=== PATIENT | male | born 1950 | race Caucasian/White ===

== ENCOUNTER 2023-09-16 06:20 | Observation (INO) ==
--- NOTE | 2023-08-18 11:48 | PAT Medication Instructions ---
Medication Instructions Date of Service August 18, 2023 Home Medications Medication Instructions Recorded celecoxib 200 mg capsule (Celebrex) 200 mg PO BID PRN pain #30 caps 05/17/23 alfuzosin 10 mg tablet,extended release 24 hr 10 mg PO QPM amlodipine 2.5 mg tablet 2.5 mg PO QAM aspirin 81 mg tablet,delayed release (Adult Aspirin Regimen) 81 mg PO QAM cetirizine 10 mg tablet 10 mg PO QAM Allergy Symptoms cholecalciferol (vitamin D3) 125 mcg (5,000 unit) capsule 125 mcg PO QAM hydralazine 50 mg tablet 50 mg PO QPM pravastatin 40 mg tablet 40 mg PO QPM sertraline 100 mg tablet 100 mg PO QPM celecoxib 200 mg capsule (Celebrex) 200 mg PO BID PRN pain valsartan 160 mg tablet 160 mg PO QAM ASK your surgeon for instructions celecoxib 200 mg capsule (Celebrex) 200 mg PO BID PRN pain ASK your prescriber and surgeon aspirin 81 mg tablet,delayed release (Adult Aspirin Regimen) 81 mg PO QAM DO NOT take the morning of surgery cetirizine 10 mg tablet 10 mg PO QAM Allergy Symptoms cholecalciferol (vitamin D3) 125 mcg (5,000 unit) capsule 125 mcg PO QAM valsartan 160 mg tablet 160 mg PO QAM Take morning of surgery With a small sip of water, OTHERWISE NOTHING TO EAT OR DRINK AFTER MIDNIGHT: amlodipine 2.5 mg tablet 2.5 mg PO QAM Take evening before surgery alfuzosin 10 mg tablet,extended release 24 hr 10 mg PO QPM hydralazine 50 mg tablet 50 mg PO QPM pravastatin 40 mg tablet 40 mg PO QPM sertraline 100 mg tablet 100 mg PO QPM Other Notes If you have any questions please call us at [phone] or [phone] or [phone] or [phone]
--- NOTE | 2023-08-23 11:16 | Anesthesiology Consultation ---
Date of Service August 23, 2023 Assessment & Plan (1) Encounter for pre-operative examination: Plan - awaiting cardiology clearance, optimization form to be faxed. - Case discussed in detail with Dr. Minor especially cardiac history and he advised cardiology clearance is needed. Surgeon's office and patient made aware. - cardiology office visit 03/17/23: "...follow up of CAD...feeling well...SOB when walking up elevation...hx of CAD with unclear stents in the past. Last stress testing has been negative...can consider ISM to see if this helps-if not, then can d/c. Consider further stress testing if symptoms are not controlle d...04/15/23: patient prescribed ISM at last visit given ongoing c/o of SOB with exertion. Did not help and he had DANGELO so stopped after two days. Continues to have some SOB but none at rest...f/u as scheduled..." Chart Review Chart Review: Pending: Refer to Additional Notes / Consult section and Patient seen in Pre Admission Testing Teaching & Discussion Pre-Anesthesia Teaching/Discussion Notes: Instructed NPO after midnight before surgery, except medications with 15 cc of water. Medication instructions provided according to the PAT guidelines. History Surgery Operation Date: 09/14/23 07:15 Proposed Procedures p L3-L4, L4-L5 Lumbar Decompression - Juan Cline MD Height/Weight Height: 6 ft 1 in Weight: 115.6 kg Allergies Allergy/AdvReac Type Severity Reaction Status Date / Time hydrochlorothiazide Allergy Intermediate rash Verified 08/10/23 10:02 naproxen [From Aleve] Allergy Intermediate rash Verified 08/10/23 10:02 Medications Home Medications Medication Instructions Recorded Confirmed Last Taken alfuzosin 10 mg tablet,extended 10 mg PO QPM 03/16/23 08/10/23 Unknown release 24 hr amlodipine 2.5 mg tablet 2.5 mg PO QAM 03/16/23 08/10/23 Unknown aspirin 81 mg tablet,delayed 81 mg PO QAM 03/16/23 08/10/23 Unknown release (Adult Aspirin Regimen) cetirizine 10 mg tablet 10 mg PO QAM Allergy Symptoms 03/16/23 08/10/23 Unknown cholecalciferol (vitamin D3) 125 125 mcg PO QAM 03/16/23 08/10/23 Unknown mcg (5,000 unit) capsule hydralazine 50 mg tablet 50 mg PO QPM 03/16/23 08/10/23 Unknown pravastatin 40 mg tablet 40 mg PO QPM 03/16/23 08/10/23 Unknown sertraline 100 mg tablet 100 mg PO QPM 03/16/23 08/10/23 Unknown celecoxib 200 mg capsule (Celebrex) 200 mg PO BID PRN pain #30 caps 05/17/23 08/10/23 Unknown valsartan 160 mg tablet 160 mg PO QAM 08/10/23 08/10/23 Unknown Past Medical History Medical History (Updated 08/23/23 @ 11:26 by Denae Marcial PA-C) Anxiety Basal cell carcinoma removed in office BPH (benign prostatic hyperplasia) Bradycardia runs in 40s CAD (coronary artery disease) 1 stent in 1999 Dyslipidemia GERD (gastroesophageal reflux disease) occasional Hearing deficit Hypertension 160s/70s per pt Low back pain Nausea and vomiting after administration of anesthetic agent denies needing scop patch Seasonal allergies Sleep apnea has not used CPAP since recall Patient denies h/o stroke, seizures, heart attack, heart failure, DM, blood clots/DVTs or blood transfusions. Exercise / Class Metabolic Activity II 4-5 Yardwork/Stairs/Walk up hill (denies chest discomfort or shortness of breath with 1 FOS) Past Family History Family History Other No family history of adverse response to anesthesia Denies family history of Rheumatoid arthritis Past Surgical History Surgical History (Updated 08/23/23 @ 11:25 by Denae Marcial PA-C) H/O hernia repair right inguinal: catheter in place for several days post-op due to residual effect from spinal block per pt History of ankle surgery right ORIF--hardware in place History of arthroscopy of right knee History of bilateral cataract extraction History of cardiac cath x2--last 2005 @ [place] no stents placed, 1999 @ [place] with 1 stent placed (pt states he was experiencing dyspnea with exertion that lead to it) History of cholecystectomy History of colonoscopy History of esophagogastroduodenoscopy (EGD) History of tonsillectomy History of wisdom tooth extraction Past Anesthesia History No Hx of Anesthesia Complications and No Family Hx of Anesthesia Complications History of PONV No Hx of Motion Sickness and History of PONV (denies needing scop patch) Social History Smoking Status: Never smoker Do You Dip or Chew Tobacco: No Hx Alcohol Use: Yes (1-2 beers per day) Alcohol type: beer alcohol intake frequency: 0-2 drinks per day Hx Substance Use: No substance use type: does not use Review of Systems Patient denies chest pain, shortness of breath, dyspnea on exertion, fever, chills, cough, wheezing, or palpitations. Physical Exam Vital Signs Vitals BP 134/77 P 53 TEMP 98.4 SP02 94% on RA RESP 18 Physical Patient resting comfortably in chair in no acute distress, alert and oriented, responding appropriately throughout visit Full cervical extension range of motion without pain TMD < 3 finger breadths Mallampati Score 3 Dentition: intact, denies chipped or loose teeth, caps/crowns, implants or bridges Lungs: normal respiratory effort. Good air movement, clear throughout to auscultation, no adventitious breath sounds Cardiac: regular rate and rhythm, no murmurs noted Carotid arteries: negative bruit bilat Lab Results Anesthesia Preop Results Results Anesthesia Widget: WBC 6.06 K/ul (4.8-10.8) 08/23/23 Hgb 14.0 g/dl (14.0-18.0) 08/23/23 Hct 40.3 % (42.0-52.0) L 08/23/23 Plt 182 K/uL (130-400) 08/23/23 Na 134 mmol/L (136-145) L 08/23/23 K 4.2 mmol/L (3.5-5.1) 08/23/23 Cl 103 mmol/L (98-107) 08/23/23 CO2 24 mmol/L (21-32) 08/23/23 BUN 14 mg/dl (6-23) 08/23/23 Creat 0.97 mg/dl (0.6-1.4) 08/23/23 Glucose Level 135 mg/dl (70-99(Fasting)) H 08/23/23 PT 10.4 Seconds (9.0-12.0) 08/23/23 PTT 28 Seconds (21-31) 08/23/23 INR 0.9 (0.9-1.1) 08/23/23 Urine Color Yellow 08/23/23 Urine Appearance Clear (Clear) 08/23/23 Urine pH 6.5 (4.5-7.5) 08/23/23 Urine Specific [place] 1.015 (1.000-1.030) 08/23/23 Urine Protein Negative (Negative) 08/23/23 Urine Glucose (UA) Negative (Negative) 08/23/23 Urine Ketones Negative (Negative) 08/23/23 Urine Blood Negative (Negative) 08/23/23 Urine Nitrite Negative (Negative) 08/23/23 Urine Bilirubin Negative (Negative) 08/23/23 Urine Urobilinogen Negative (Negative) 08/23/23 Urine Leukocyte Esterase Negative (Negative) 08/23/23 Blood Type A Positive 08/23/23 Antibody Screen NEGATIVE 08/23/23 Testing Electrocardiogram Date: 08/23/23 Sinus bradycardia, rate 57 bpm Cannot rule out anterior infarct, age undetermined Possible inferior infarct Chest X-Ray Date: 08/23/23 No acute process. Echocardiogram Date: 09/21/22 EF 60-65% Normal LV wall motion 3.8 cm aortic aneurysm in ascending aorta No significant valvular pathology Stress Test Date: 07/30/22 Pharmacologic MPHR 89% Negative for prior OK and/or ischemia EF > 65%
[2023-09-16] MEDS: LR 15ML/HR IV SCH (07:00)
[2023-09-16] MEDS: LR 60ML/HR IV SCH (07:01)
--- NOTE | 2023-09-16 07:17 | History & Physical Bridge Note ---
Date of Service September 16, 2023 History & Physical Bridge Note I have examined the patient, reviewed the History & Physical and in the interval since the performance of the History & Physical I have noted the following changes of clinical significance: no changes noted
[2023-09-16] MEDS ORDERED: DEXAMETHASONE SOD INJ 4 MG/ML VIAL ONE (07:37)
[2023-09-16] MEDS ORDERED: LIDOCAINE 2% 2 ML VIAL/AMP(20MG/ML) INFIL ONE (07:37)
[2023-09-16] MEDS ORDERED: fentaNYL citrate PF 100 MCG/2 ML VIAL ONE (07:37)
[2023-09-16] MEDS ORDERED: PROPOFOL IV EMULSION 10 MG/ML 20 ML VIAL IV ONE (07:37)
[2023-09-16] MEDS ORDERED: ONDANSETRON INJ 2 MG/ML 2 ML VIAL ONE (07:37)
[2023-09-16] MEDS ORDERED: ROCURONIUM BROMIDE 10 MG/ML 5 ML VIAL IV ONE ×3 (07:37→11:14)
[2023-09-16] MEDS ORDERED: MIDAZOLAM HCL 1 MG/ML 2ML VIAL ONE (07:50)
[2023-09-16] MEDS ORDERED: fentaNYL citrate PF 100 MCG/2 ML VIAL IV PRN (07:56)
[2023-09-16] MEDS ORDERED: ATROPINE SULFATE 0.1 MG/ML 10ML SYR IV PRN (07:56)
[2023-09-16] MEDS ORDERED: ePHEDrine sulfate 50 MG/ML AMP IV PRN (07:56)
[2023-09-16] MEDS ORDERED: ONDANSETRON INJ 2 MG/ML 2 ML VIAL IV PRN ×2 (07:56→12:49)
[2023-09-16] MEDS ORDERED: ePHEDrine sulfate 50 MG/5 ML SYR ONE (08:42)
[2023-09-16] MEDS ORDERED: GLYCOPYRROLATE 0.2 MG/ML VIAL ONE (08:42)
[2023-09-16] MEDS: ceFAZolin 2000MG 2,000 MG/15 ML SYR IV SCH (08:49)
[2023-09-16] MEDS ORDERED: VASOPRESSIN 20 UNIT/ML VIAL ONE (09:27)
[2023-09-16] MEDS: VANCOMYCIN HCL 1000MG/20ML VIAL ONE (09:35)
[2023-09-16] MEDS ORDERED: PHENYLEPHRINE 100MCG/ML 10ML SYR IV ONE (09:48)
[2023-09-16] MEDS ORDERED: ALBUMIN HUMAN 5% 12.5 GM/250 ML VIAL IV ONE (10:33)
[2023-09-16] MEDS: GELATIN SPONGE SZ 100 ONE (11:43)
[2023-09-16] MEDS: THROMBIN 5000 UNITS KIT ONE (11:43)
[2023-09-16] MEDS ORDERED: SUGAMMADEX SODIUM 200 MG/2 ML VIAL IV ONE (11:45)
[2023-09-16] MEDS: FLOSEAL HEMOSTATIC MATRIX 5ML TOP ONE (11:47)
[2023-09-16] MEDS: BUPIVACAINE/EPINEPHRINE 0.5% MPF 1:200,000 30 ML VIAL ONE (11:47)
[2023-09-16] MEDS ORDERED: KETOROLAC 30 MG/ML VIAL ONE (11:55)
[2023-09-16] MEDS ORDERED: HYDROmorphone INJ 2 MG/ML SYR/VIAL ONE (11:57)
[2023-09-16] MEDS ORDERED: ACETAMINOPHEN 1000 MG/100 ML IV IV ONE (12:00)
--- NOTE | 2023-09-16 12:19 | Post Operative Brief Note ---
PG Immediate Post Op with CF Date of Surgery September 16, 2023 Pre & Post Diagnosis Operation Date: 09/16/23 08:15 Pre-Op Diagnosis: Neurogenic Claudication, Spinal Stenosis Post-Op Diagnosis: Neurogenic Claudication, Spinal Stenosis I identified the patient and participated in the time-out.: Yes Procedure Operation Date: 09/16/23 08:15 Actual Procedures p L3-L4, L4-L5 Lumbar Decompression(Not Applicable) - Juan Cline MD Surgeon Juan Cline MD Stock Lifter none Estimated Blood Loss 50 Findings Consistent with Post-Op Diagnosis Specimens Specimen Description: None per surgeon
--- NOTE | 2023-09-16 12:42 | Anesthesiology Progress Note ---
Date of Service September 16, 2023 Anesthesia Post Procedure Vital Signs Vital Signs: Temp Pulse Pulse Resp BP Pulse Ox O2 Del Method 09/16/23 12:35 76 12 110/62 93 Room Air 09/16/23 12:25 67 14 123/55 L 96 Oxymask 09/16/23 12:15 36.5 C 72 17 153/60 H 96 Oxymask 09/16/23 06:45 36.4 C L 62 20 163/83 H 94 Room Air O2 Flow Rate 09/16/23 12:35 09/16/23 12:25 4 09/16/23 12:15 6 09/16/23 06:45 Pain Intensity Left Lower Back: Pain Intensity: 3 Transfer of Care Handoff Completed per policy Notes Mental Status: alert / awake / arousable and participated in evaluation Patient Amnestic to Procedure: Yes Nausea / Vomiting: adequately controlled Pain: adequately controlled Airway Patency, RR, SpO2: stable & adequate BP & HR: stable & adequate Hydration State: stable & adequate Anesthetic Complications: no major complications apparent and Pt Satisfied with anesthetic care
[2023-09-16] MEDS ORDERED: DO NOT ADMINISTER PNEUMOCOCCAL VACCINE PRN (12:49)
[2023-09-16] MEDS ORDERED: MAGNESIUM HYDROXIDE SUSP 30 ML UDC PO PRN (12:49)
[2023-09-16] MEDS ORDERED: ACETAMINOPHEN 1,000 MG/100 ML VIAL IV PRN (12:49)
[2023-09-16] MEDS ORDERED: LORazepam 0.5 MG TAB PO PRN (12:49)
[2023-09-16] MEDS ORDERED: traMADol HCL 50 MG TABLET PO PRN (12:49)
[2023-09-16] MEDS ORDERED: ACETAMINOPHEN 500 MG TAB PO PRN (12:49)
[2023-09-16] MEDS ORDERED: FAMOTIDINE 20 MG TAB PO PRN (12:49)
[2023-09-16] MEDS ORDERED: DO NOT ADMINISTER FLU VACCINE PRN (12:49)
[2023-09-16] MEDS ORDERED: HYDROmorphone INJ 0.5 MG/0.5 ML SYR IV PRN (12:49)
[2023-09-16] MEDS ORDERED: LORazepam 0.5 MG in SYRINGE 0.25 ML IV PRN (12:49)
[2023-09-16] MEDS ORDERED: diphenhydrAMINE Capsule 25 MG CAP PO PRN (12:49)
[2023-09-16] MEDS ORDERED: PROMETHAZINE HCL 12.5 MG in SODIUM CHLORIDE 0.9% 50 ML IV PRN (12:49)
[2023-09-16] MEDS ORDERED: NALOXONE HCL 0.4 MG/1 ML VIAL/CARP IV PRN (12:49)
[2023-09-16] MEDS ORDERED: HYDROmorphone INJ 1 MG/ML SYRINGE IV PRN (12:49)
[2023-09-16] MEDS ORDERED: bisacodyL 10 MG SUPP PR PRN (12:49)
[2023-09-16] MEDS ORDERED: ONDANSETRON 4 MG OD TAB PO PRN (12:49)
[2023-09-16] MEDS ORDERED: SOD PHOSPHATE/SOD BIPHOSPHATE ENEMA 132 ML BTL PR PRN (12:49)
[2023-09-16] MEDS ORDERED: hydrOXYzine HCl 25 MG TAB PO PRN (12:49)
[2023-09-16] MEDS ORDERED: METOCLOPRAMIDE HCL INJ 5 MG/ML 2 ML VIAL IV PRN (12:49)
--- NOTE | 2023-09-16 13:40 | Fluoroscopy Report ---
FL lumbar spine 2-3V CLINICAL HISTORY: L3-L4 L4-L5 LUMBAR DECOMPRESSION COMPARISON STUDY: Lumbar spine MRI April 16, 2023. Lumbar spine radiographs May 17, 2023. FLUOROSCOPY TIME: 36 seconds. Ka, r: 29.79 mGy FLUOROSCOPIC IMAGES: 2 FINDINGS: Single lateral fluoroscopic image of the mid to lower lumbar was obtained. This demonstrate s surgical retractors. Superior surgical instrument projects over the posterior elements at the L3-L4 level. The more inferior surgical instrument projects over the posterior elements at the L4-L5 level . IMPRESSION: Fluoroscopy provided during L3-L4 and L4-L5 decompression. ACT 112: Negative or not required by law. Electronically signed by: Bryan Issa M.D. 09/16/2023 1:38 PM
--- NOTE | 2023-09-16 15:48 | Hospitalist Consultation ---
Date of Consultation September 16, 2023 Assessment & Plan (1) Status post lumbar spine surgery for decompression of spinal cord: Pain / VTE / bowel management per primary orthopedic team (2) Hypertension: Hold hydralazine tonight, restart tomorrow night with hold parameter if sBP < 120 Continue losartan with hold parameter for sBP < 120 Continue amlodipine (3) CAD (coronary artery disease): s/p x2 stent placed in 1999, stable symptomatically since (4) BPH (benign prostatic hyperplasia): Continue alfuzosin History of Present Illness Reason for Consultation: Medical Management Attending Physician: Juan Cline MD History of Present Illness López Villar is a 72 year old male POD#0 lumbar spinal decompression performed by Dr Cline earlier today. Estimated blood loss 50ml. No acute concerns or questions from the patient. Allergies Allergy/AdvReac Type Severity Reaction Status Date / Time hydrochlorothiazide Allergy Intermediate rash Verified 09/16/23 06:39 naproxen [From Aleve] Allergy Intermediate rash Verified 09/16/23 06:39 Home Medications Medication Instructions Recorded Confirmed Type alfuzosin 10 mg tablet,extended 10 mg PO QPM 03/16/23 09/16/23 History release 24 hr amlodipine 2.5 mg tablet 2.5 mg PO QAM 03/16/23 09/16/23 History aspirin 81 mg tablet,delayed 81 mg PO QAM 03/16/23 09/16/23 History release (Adult Aspirin Regimen) cetirizine 10 mg tablet 10 mg PO QAM Allergy Symptoms 03/16/23 09/16/23 History cholecalciferol (vitamin D3) 125 125 mcg PO QAM 03/16/23 09/16/23 History mcg (5,000 unit) capsule hydralazine 50 mg tablet 50 mg PO QPM 03/16/23 09/16/23 History pravastatin 40 mg tablet 40 mg PO QPM 03/16/23 09/16/23 History sertraline 100 mg tablet 100 mg PO QPM 03/16/23 09/16/23 History celecoxib 200 mg capsule (Celebrex) 200 mg PO BID PRN pain #30 caps 05/17/23 09/16/23 Rx valsartan 160 mg tablet 160 mg PO QAM 08/10/23 09/16/23 History valsartan 80 mg tablet 80 mg PO QAM 09/16/23 09/16/23 History Patient History Medical History (Updated 09/16/23 @ 15:43 by Beni Sierra MD) GERD (gastroesophageal reflux disease) occasional CAD (coronary artery disease) 1 stent in 1999 Nausea and vomiting after administration of anesthetic agent denies needing scop patch Hearing deficit Bradycardia runs in 40s Sleep apnea has not used CPAP since recall Low back pain Basal cell carcinoma removed in office Seasonal allergies Anxiety BPH (benign prostatic hyperplasia) Dyslipidemia Hypertension 160s/70s per pt Surgical History (Updated 09/16/23 @ 15:43 by Beni Sierra MD) History of arthroscopy of right knee History of esophagogastroduodenoscopy (EGD) History of colonoscopy History of wisdom tooth extraction History of tonsillectomy History of bilateral cataract extraction History of cardiac cath x2--last 2005 @ [place] no stents placed, 1999 @ [place] with 1 stent placed (pt states he was experiencing dyspnea with exertion that lead to it) History of cholecystectomy History of ankle surgery right ORIF--hardware in place H/O hernia repair right inguinal: catheter in place for several days post-op due to residual effect from spinal block per pt Family History Other No family history of adverse response to anesthesia Denies family history of Rheumatoid arthritis Social History Smoking Status: Never smoker Second Hand Exposure: No; Do You Dip or Chew Tobacco: No; Tobacco Cessation Education Requested by Patient: No Hx Alcohol Use: Yes (1-2 beers per day) Alcohol type: beer Hx Substance Use: No Preferred Language: Spanish Communication Ability: Effective Irrigator Gravity Flow Required: No Beliefs That Will Affect Care: None Current Living Situation: Spouse and Family Current Living Situation Comment: Lives with and grandson Other Information That Helps Us Care for You: No Feels Safe at Home: Yes Safety Concerns: Feels Safe At This Time Assistive Devices: Glasses and Hearing Aid - Bilateral Assistive Devices Comment: reading glasses Review of Systems Review of Systems: All systems reviewed & are unremarkable except as noted in HPI & below Physical Exam Constitutional: WD/WN, vitals as above Respiratory: normal respiratory effort, lungs clear to auscultation Cardiovascular: RRR, no murmur, no edema Gastrointestinal (Abdomen): normal bowel sounds, soft, nontender, no hepatosplenomegaly Results & Data Results & Data Vital Signs (Past 12 Hours) Vital Signs Temp Pulse Pulse Resp BP Pulse Ox O2 Del Method 09/16/23 14:54 36.4 C L 66 16 126/62 92 Room Air 09/16/23 13:53 36.6 C 71 18 128/65 92 Room Air 09/16/23 13:25 36.4 C L 70 18 136/62 92 Room Air 09/16/23 12:55 36.4 C L 70 18 120/58 L 95 Room Air 09/16/23 12:45 36.6 C 77 20 119/63 94 Room Air 09/16/23 12:35 76 12 110/62 93 Room Air 09/16/23 12:25 67 14 123/55 L 96 Oxymask 09/16/23 12:15 36.5 C 72 17 153/60 H 96 Oxymask 09/16/23 06:45 36.4 C L 62 20 163/83 H 94 Room Air O2 Flow Rate 09/16/23 14:54 09/16/23 13:53 09/16/23 13:25 09/16/23 12:55 09/16/23 12:45 09/16/23 12:35 09/16/23 12:25 4 09/16/23 12:15 6 09/16/23 06:45 PG Care Time/CCT Total # of Minutes Spent Total Time Spent with Patient: Total time spent is greater than 50% in coordination of care (as documented) at patient's floor/unit and/or counseling patient: Coding Level of Care Code 41405 IN/OBS CONSULT LVL 4,60M Diagnoses Status post lumbar spine surgery for decompression of spinal cord Z98.890 Hypertension I10 CAD (coronary artery disease) I25.10 BPH (benign prostatic hyperplasia) N40.0
[2023-09-16] MEDS: ceFAZolin 1000MG 1,000 MG/7.5 ML SYR IV SCH (16:35)
[2023-09-16] MEDS: TAMSULOSIN HCL 0.4 MG CAP PO SCH (20:47)
[2023-09-16] MEDS: SERTRALINE HCL 100 MG TABLET PO SCH (20:47)
[2023-09-16] MEDS: DOCUSATE SODIUM/SENNA 50/8.6MG TAB PO SCH (20:47)
[2023-09-16] MEDS: PRAVASTATIN SOD 40 MG TAB PO SCH (20:47)
[2023-09-16] MEDS ORDERED: hydrALAZINE TAB 50 MG TAB PO SCH (21:00)
[2023-09-17] MEDS: oxyCODONE HCL IR 5 MG TAB (IMMEDIATE RELEASE) PO PRN (01:43)
[2023-09-17] MEDS: ALUMINUM/MAGNESIUM SUSP 30 ML UDC PO PRN (02:51)
[2023-09-17] MEDS: POLYETHYLENE (MIRALAX) 17 GM PACK PO SCH (05:46)
[2023-09-17] MEDS: ASPIRIN 81 MG ECTAB PO SCH (08:12)
[2023-09-17] MEDS: VALSARTAN 80 MG TAB PO SCH (08:12)
[2023-09-17] MEDS: amLODIPine BESYLATE 5 MG TAB PO SCH (08:13)
--- NOTE | 2023-09-17 08:19 | Hospitalist Progress Note ---
Date of Service September 17, 2023 Assessment & Plan (1) Status post lumbar spine surgery for decompression of spinal cord: Plan: s/p L3-L4, L4-L5 Lumbar Decompression(Not Applicable) - Juan Cline MD on 09/15. EBL 50cc Pain / VTE / bowel management per primary orthopedic team Added labs for AM, still pending, however afebrile, no fever/chills, CP/SOB or infectious symptoms reported. Patient looking GREAT, pain controlled, passing gas, worked with therapy and anticipating discharge home. Please call with any questions/concerns, however patient appears to be stable for discharge from medical standpoint. (2) Hypertension: Plan: Held hydralazine post-op, resumed w/ parameters Losartan continued, BP stable, remains on amlodipine BP 130/80 (3) CAD (coronary artery disease): Plan: s/p x2 stent placed in 1999, stable symptomatically since aspirin resumed for 09/16 by primary not on BB due to bradycardia (prior on carvedilol) No CP/SOb reported (4) BPH (benign prostatic hyperplasia): Plan: Continue alfuzosin no issues w/ urinary retention reported, no leroy w/ procedure Plan Thank you for allowing hospitalist service to participate in the care of Mr Villar. Hospitalist service will sign off at this time. Please call with any questions/concerns. Admission and Anticipated Discharge Date Admission Date: September 16, 2023 Supervising Physician Co-Signing Physician Notes The patient was not seen by me. The chart was reviewed. Case discussed with HAMIDA Alonzo. Agree with assessment and plan Subjective Evaluated this morning, sitting up in the chair, looks great. Pain controlled with ordered meds. Good appetite, passing some gas, got some miralax this morning. No issues w/ voiding or catheter with procedure. Encouraged bowel regimen while on pain meds. Already seen by therapy this morning, walked the halls. No fever/chills, chest pain or shortness of breath. He is anticipating discharge today. Questions/concerns addressed at this time. Physical Exam Physical Exam: General: 72yo male , WN/WD sitting up in recliner, looks good Head atraumatic, normocephalic, mmm, trachea midline Resp: even/unlabored, on room air CV: RRR, no significant mrg, no pitting edema GI: +BS, slight distension but soft/NT : no leroy MSK/Neuro: dressing to lumbar spine c/d/i, strength testing equal, bilateral pulses intact, no focal deficits Psych: AOx3, cooperative with exam Results & Data Results & Data Vital Signs (Past 12 Hours) Vital Signs Temp Pulse Pulse Resp BP Pulse Ox O2 Del Method 09/17/23 08:06 36.8 C 60 16 130/80 94 Room Air 09/17/23 02:47 36.8 C 65 18 129/61 96 Room Air 09/16/23 22:58 36.8 C 60 18 117/58 L 92 Room Air Diagnostic Findings Lumbar Spine X-Ray 09/16/23 00:00 FL lumbar spine 2-3V CLINICAL HISTORY: L3-L4 L4-L5 LUMBAR DECOMPRESSION COMPARISON STUDY: Lumbar spine MRI April 16, 2023. Lumbar spine radiographs May 17, 2023. FLUOROSCOPY TIME: 36 seconds. Ka, r: 29.79 mGy FLUOROSCOPIC IMAGES: 2 FINDINGS: Single lateral fluoroscopic image of the mid to lower lumbar was obtained. This demonstrates surgical retractors. Superior surgical instrument projects over the posterior elements at the L3-L4 level. The more inferior surgical instrument projects over the posterior elements at the L4-L5 level. IMPRESSION: Fluoroscopy provided during L3-L4 and L4-L5 decompression. ACT 112: Negative or not required by law. Electronically signed by: Bryan Issa M.D. 09/16/2023 1:38 PM PG Care Time/CCT Total # of Minutes Spent Total Time Spent with Patient: Total time spent is greater than 50% in coordination of care (as documented) at patient's floor/unit and/or counseling patient: Coding Level of Care Code 12306 SUB INP/OBS CARE 2/35MIN Diagnoses Status post lumbar spine surgery for decompression of spinal cord Z98.890 Hypertension I10 CAD (coronary artery disease) I25.10 BPH (benign prostatic hyperplasia) N40.0
--- NOTE | 2023-09-17 11:26 | Orthopedic Progress Note ---
Date of Service September 17, 2023 Assessment & Plan (1) Status post lumbar spine surgery for decompression of spinal cord: Overall, he is doing quite well today with good pain control to the lumbar spine. He will work with physical therapy to work on ambulation and range of motion exercises. He can be discharged home later this morning pending physical therapy evaluation and recommendations. He will follow-up with Dr. Cline in 2 weeks for postoperative management. Subjective . López was seen and evaluated this morning resting comfortably in no apparent distress. He notes that his pain to the lumbar spine is almost nonexistent today. He does notice a little bit of excisional pain but notes that the pain preoperatively is almost completely resolved. He has been up and ambulating with no significant issues. He is about to work with physical therapy. He denies any other concerns today. Review of Systems All systems reviewed & are unremarkable except as noted in HPI & below. Physical Exam . On physical examination of the lumbar spine the lower extremity, dressings are clean, dry, intact. Grossly intact motor and sensory function to the bilateral lower extremities. Able to plantarflex and dorsiflex at bilateral ankles. +2 DP and PT pulses. Less than 2-second capillary refill. Normal sensation. Neurovascular intact. Results & Data Results & Data Laboratory Results . Diagnostic Findings . PG Care Time/CCT Total # of Minutes Spent Total Time Spent with Patient: Total time spent is greater than 50% in coordination of care (as documented) at patient's floor/unit and/or counseling patient: Coding Level of Care Code 14024 Post Operative Follow-Up Diagnoses Status post lumbar spine surgery for decompression of spinal cord Z98.890
--- NOTE | 2023-09-17 11:27 | Discharge Summary ---
Date of Service September 17, 2023 Admission HPI (Per Admitting) On September 16, 2023 López arrived at [facility] and underwent a L3-L4 and L4-L5 lumbar decompression performed by Dr. Cline without issue or complication. He had a general anesthetic. Postoperatively, he was transferred to the PACU for immediate postoperative management and transferred to the general orthopedic floor in stable condition. His hospital course was uneventful. On postoperative day #1, his vital signs were stable and his pain was well-controlled. He participated well with physical therapy working on ambulation and range of motion exercises. He was then discharged home in stable condition. He will follow-up with Dr. Cline in 2 weeks for postoperative management. Principal Diagnosis Same as "Discharge Diagnosis" noted below under Discharge Instructions. Discharge Exam . On physical examination of the lumbar spine the lower extremity, dressings are clean, dry, intact. Grossly intact motor and sensory function to the bilateral lower extremities. Able to plantarflex and dorsiflex at bilateral ankles. +2 DP and PT pulses. Less than 2-second capillary refill. Normal sensation. Neurovascular intact. Discharge Data Consultations 09/16/23 12:49 Consult Hospitalist Routine Procedures Performed Operation Date: 09/16/23 08:15 Actual Procedures p L3-L4, L4-L5 Lumbar Decompression(Not Applicable) - Juan Cline MD Ordered Studies 09/16/23 [place] lumbar spine 2-3V Routine PG Care Time/CCT Total # of Minutes Spent Total Time Spent with Patient: Total time spent is greater than 50% in coordination of care (as documented) at patient's floor/unit and/or counseling patient: Discharge Plan Discharge Items Patient Disposition: Home - Self-Care Reason For Visit: Neurogenic Claudication, Spinal Stenosis, Low Back Discharge Diagnosis: Same Activity: Per Instructions section Non-emergency contact: Surgeon Call non-emergency contact if: your temperature is above 101.5, your wound has increased redness, your wound has increased drainage and your wound pain has increased Follow-up/Referrals: Juan Cline MD [Surgeon] - Xavier Adair [Primary Care Provider] - 09/21/23 1:30 pm ([facility]) Diet: Regular Addtl Attending Provider Instructions: Please follow Dr. Cline Post Operative Instructions that were given in the office upon scheduling surgery. -Dressings will be changed prior to discharge. -Keep Surgical site dry for the next 3 days. -May shower after 3 days with no soaking of the surgical site -May leave surgical site open to air if dry. -Cover the surgical site with a bandage if draining or getting caught on clot hes. -Take it easy for the next 2 weeks. (Ex: No Lifting, running, bending, or twisting, etc.). -You will F/u with Dr. Cline in 2 weeks for postoperative care. -If any questions or concerns in the mean time, Reach out to [facility] at [phone] Pending Studies at Discharge: No Stand-Alone Forms: [facility] [employer], Pain - Opioid Pain Management Medications and DC Order Prescriptions: New tramadol 50 mg Tablet 50 mg PO Q6H PRN (Reason: pain) Qty: 24 0RF Continued hydralazine 50 mg tablet 50 mg PO QPM amlodipine 2.5 mg tablet 2.5 mg PO QAM pravastatin 40 mg tablet 40 mg PO QPM alfuzosin 10 mg tablet extended release 24 hr 10 mg PO QPM Rx Instructions: administer after the same meal each day sertraline 100 mg tablet 100 mg PO QPM cetirizine 10 mg tablet 10 mg PO QAM aspirin [Adult Aspirin Regimen] 81 mg tablet,delayed release (DR/EC) 81 mg PO QAM cholecalciferol (vitamin D3) 125 mcg (5,000 unit) capsule 125 mcg PO QAM valsartan 160 mg Tablet 160 mg PO QAM valsartan 80 mg tablet 80 mg PO QAM Held celecoxib [Celebrex] 200 mg capsule 200 mg PO BID PRN (Reason: pain) Qty: 30 1RF Hold Instructions: Resume on 10/01/23. Until Follow Up with Dr. Cline Discharge Orders: Discharge Order (Routine); Ordered 09/17/23 Ordered By: Yovany Olivia/Other Patient Handouts: Back Safety Bed, Back Safety: Bending, Back Safety: Lifting, Back Safety: Sitting, Back Safety: Turning, Post-Op Tips: Back Admission Data Admit Date/Time: 09/16/23 10:37 Attending Provider: Juan Cline Admit Provider: Juan Cline Primary Care Provider: Xavier Adair Other Providers: Gerald Mejias; Maddie Elizondo; Beni Ugarte; Demetrius Snider; Filipe Chacko; aDve Santos; Delia Campbell; Mariela Coyne; India Wilder; Coy Rivera; Vic Carreno; Beatrice Muñoz; Yeison Benton; Beni Sierra; Chao Winter; Emily Ag; Savanah Abraham; Savanah Negron; Matthew Hanks; Allison Phelps; Rd Gray; Quentin Castano; Ernst Cobos; Leigh Ann Moody; Margarette Dailey; Robert Singleton; Teresa Romano; Demetrius Healy; Filipe Hernandez; Sandi Conroy Other Interventions: Discharge Summary Assessment (RN) Last Done: 09/17/23 09:46
[2023-09-17] MEDS ORDERED: hydrALAZINE TAB 50 MG TAB PO SCH (21:00)
--- NOTE | 2023-09-22 14:56 | Operative Report ---
PG Post Operative Report Pre & Post Diagnosis Operation Date: 09/16/23 08:15 Pre-Op Diagnosis: Neurogenic Claudication, Spinal Stenosis Post-Op Diagnosis: Neurogenic Claudication, Spinal Stenosis I identified the patient and participated in the time-out.: Yes Procedure Operation Date: 09/16/23 08:15 Actual Procedures p L3-L4, L4-L5 Lumbar Decompression(Not Applicable) - Juan Cline MD Surgeon Juan Cline MD Service Officer none Estimated Blood Loss 50 Findings Consistent with Post-Op Diagnosis Specimens none Description of Procedure 1. L3-4 posterior lumbar decompression (06042) 2. L4-5 posterior lumbar decompression (44228) Patient was taken the operating room and placed prone on the Mario frame, carefully checked for positioning. The lumbar spine was preprepped, C-arm was brought in where I marked for the incision region for the L3-4 and L4-5 levels. Prep and drape was performed, and I began the procedure with a midline incision taken down through the subcutaneous tissues down to either side of the fascial attachment to the spinous processes. I then reached the L3-4 and L4-5 interspinous region, this confirmed fluoroscopically. The soft tissue was then mobilized away from the interlaminar region of L3-4 and L4-5, and then move ahead with the decompression. Starting at L4-5 the interspinous ligament was removed and bony portions of the spinous process of L4, and this was taken down to the interlaminar region where I then thinned the overlying ligamentum flavum. The high-speed bur was then performed to provide a inferior Moses laminectomy along the inferior laminar edge of L4 and across the superior laminar edge of L5 along the medial facets on both sides. I then continued within the ligamentum flavum, and then removed it using combination of curettes and Kerrison punches decompressing the segment adequately. Gelfoam was applied along with Floseal, I then moved to the L3-4 level where identical procedure was performed. This included removing portions spinous process, and then performing inferior hemilaminectomy along the inferior aspect of L3 on the superior aspect of L4 along the medial facets bilaterally. The medial facet and ligamentum flavum was then thinned and removed decompressing the segment. Upon completion all areas were inspected, no issues were noted, I then injected local anesthetic to the region followed by vancomycin powder. The operative site was then closed using interrupted 0 Vicryl sutures followed by additional 0 Vicryl sutures and then 2- 0 Vicryl sutures and aiden for the skin. A sterile dressing was applied, the patient was taken recovery room in satisfactory condition. I attest to the content of the Intraoperative Record and any orders documented therein. Any exceptions are noted below.
== END 2023-09-17 11:55 | disposition home or self-care (01) ==
LOC: 3E 06:20 → ASU 06:20
DX: Z01.818 Encounter for other preprocedural examination; Z01.812 Encounter for preprocedural laboratory examination; F10.10 Alcohol abuse, uncomplicated; E78.5 Hyperlipidemia, unspecified; Z88.8 Allergy status to other drugs, medicaments and biological substances; Z79.899 Other long term (current) drug therapy; I25.10 Atherosclerotic heart disease of native coronary artery without angina pectoris; Z01.810 Encounter for preprocedural cardiovascular examination; Z79.82 Long term (current) use of aspirin; Z95.5 Presence of coronary angioplasty implant and graft; I10 Essential (primary) hypertension; M48.062 Spinal stenosis, lumbar region with neurogenic claudication; N40.0 Benign prostatic hyperplasia without lower urinary tract symptoms